=== PATIENT | male | born 1990 | race Two or more races ===

== ENCOUNTER 2024-12-29 00:20 | Emergency (ER) | payer OTHER ==
[~2024-12-29] VITALS: Ht 182.9 cm; Wt 117.9 kg
[2024-12-29 00:36] VITALS: BP 121/79; O2SAT 98
[2024-12-29] MEDS ORDERED: FLUCONAZOLE150 MG PO (00:38)
[2024-12-29] MEDS ORDERED: TOPROL XL25 M1 PO (00:39)
[2024-12-29] MEDS ORDERED: DIPHENHYDRAMINE HCL 50 MG/ML VIAL 1ML IV STA (01:09)
[2024-12-29] MEDS ORDERED: FAMOTIDINE/PF 20 MG/2 ML VIAL IV PUSH STA (01:10)
[2024-12-29] MEDS ORDERED: METHYLPREDNISOLONE SOD SUCC 125 MG VIAL IV STA (01:10)
[2024-12-29] MEDS ORDERED: MEDROL8 MG PO (04:13)
[2024-12-29] MEDS ORDERED: BENADRYL25 MG PO (04:13)
[2024-12-29] MEDS ORDERED: PEPCID40 MG PO (04:13)
== END 2024-12-29 04:19 ==
LOC: ER 01:04
DX: T78.49XA Other allergy, initial encounter (principal); X58.XXXA Exposure to other specified factors, initial encounter; I10 Essential (primary) hypertension